=== PATIENT | female | born 1995 | race African-American/Black ===

== ENCOUNTER 2019-12-22 15:43 | Observation (INO) | payer OTHER ==
[2019-12-22 16:39] LABS: BASO # 0.1 x10^3/uL (0.0-0.2); BASO % 1 % (0-3); EOS # 0.1 x10^3/uL (0.0-0.7); EOS % 1 % (0-3); HEMATOCRIT 32.2 % (36.0-47.0); HEMOGLOBIN 11.5 g/dL (12.0-15.5); LYMPH % 23 % (24-48); MEAN CORPUSCULAR HEMOGLOBIN 33 pg (25-35); MEAN CORPUSCULAR HGB CONC 36 g/dL (31-37); MEAN CORPUSCULAR VOLUME 93 fL (79-100); MONO # 0.4 x10^3/uL (0.0-1.1); MONO % 5 % (0-9); NEUT # 6.3 x10^3/uL (1.8-7.7); NEUT % 71 % (31-73); PLATELET COUNT 215 x10^3/uL (140-400); RED BLOOD COUNT 3.48 x10^6/uL (3.50-5.40); WHITE BLOOD COUNT 8.9 x10^3/uL (4.0-11.0)
[2019-12-22 16:44] LABS: BILIRUBIN,URINE NEGATIVE (NEG); CLARITY,URINE CLEAR; COLOR,URINE YELLOW; NITRITE,URINE NEGATIVE (NEG); PROTEIN,URINE NEGATIVE (NEG-TRACE)
[2019-12-22 16:45] LABS: CALCIUM 7.9 mg/dL (8.5-10.1); CREATININE 0.5 mg/dL (0.6-1.0); GFR 183.4; POTASSIUM 3.2 mmol/L (3.5-5.1)
[2019-12-22 16:51] LABS: ALBUMIN/GLOBULIN RATIO 0.8 (1.0-1.7); TOTAL BILIRUBIN 0.4 mg/dL (0.2-1.0); TOTAL PROTEIN 6.8 g/dL (6.4-8.2)
[2019-12-22 17:08] LABS: BACTERIA,URINE FEW /HPF (0-FEW); RBC,URINE 0 /HPF (0-2); SQUAMOUS EPITHELIAL CELL,UR FEW /LPF; WBC,URINE 0 /HPF (0-4)
[2019-12-22 17:43] LABS: CREATININE,RANDOM URINE 249.5 mg/dL (Not Establ.)
== END 2019-12-22 17:35 | disposition home or self-care (01) ==
LOC: 3 SO LND 15:43
PROVIDERS: ADMIT Obstetrics & Gynecology; ATTEND Obstetrics & Gynecology
DX: O13.1 Gestational [pregnancy-induced] hypertension without significant proteinuria, first trimester (principal); Z3A.11 11 weeks gestation of pregnancy
CPT/HCPCS: 36415; 80053; 81001; 82570; 84156; 85025; G0378; G0379

== ENCOUNTER → 2020-01-23 | Outpatient (CLI) | payer OTHER | END | disposition home or self-care (01) | LOC: LAB 10:01 | PROVIDERS: ATTEND Obstetrics & Gynecology | DX: O09.90 Supervision of high risk pregnancy, unspecified, unspecified trimester (principal); Z3A.00 Weeks of gestation of pregnancy not specified | CPT/HCPCS: 36415; 82950 ==

== ENCOUNTER 2020-04-09 10:54 | Observation (INO) | payer OTHER ==
[2020-04-09] MEDS ORDERED: IV RINGERS,LACTATED 1000ML 1,000 ML IV SCH (11:06)
[2020-04-09 11:46] LABS: AMNIO PT NEGATIVE
[2020-04-09 11:58] LABS: BACTERIA,URINE 0 /HPF (0-FEW); BILIRUBIN,URINE NEGATIVE (NEG); CLARITY,URINE CLEAR; COLOR,URINE STRAW; NITRITE,URINE NEGATIVE (NEG); PROTEIN,URINE NEGATIVE (NEG-TRACE); RBC,URINE 0 /HPF (0-2); UROBILINOGEN,URINE 0.2 mg/dL (0.2 mg/dL); WBC,URINE 0 /HPF (0-4)
--- NOTE | 2020-04-09 13:14 | RAD ---
OB ultrasound greater than 14 weeks HISTORY: patient feels like she is leaking Sonographic examination appearance is performed by transabdominal technique and multiple static images were obtained. There is a single live intrauterine. Superior the heartbeat is confirmed at 124 beats for minute. Maternal cervix is not well seen due to the vertex position. There is a anterior placenta. Visualization of structures is limited by the advanced gestational age. The stomach appears normal. The amount fluid volume appears normal dynamic fluid index measures 10.2 cm. The LMP of 07/13/2019 corresponds with a 38 week 5 day gestational age and estimated date confinement of April 18, 2020. The estimated size by ultrasound is 37 weeks 5 days with estimated date of confinement of April 25, 2020. Estimated weight is 7 lbs. 7 oz. +/- 18 ounces. Estimated weight percentile is 51 percent. The measurements are as follows: BPD 9 cm 36 weeks 3 days Head circumference 33 cm 30 weeks 1 day Abdominal discomfort 34 cm 30 weeks 1 day Femur length 7.5 cm 30 weeks 2 days IMPRESSION: 1. Single live intrauterine size by ultrasound is within one standard deviation of size by LMP. 2. The maternal cervix could not be evaluated due to the cephalic position. 3. Visualization of structures is limited at this advanced gestational age however no abnormality is identified. A short-term follow-up ultrasound could be performed if clinically indicated. Electronically signed by: Madhu Cervantes III, MD (04/09/2020 1:11 PM) [facility]
[2020-04-09 15:11] VITALS: BP 112/64
== END 2020-04-09 15:31 | disposition home or self-care (01) ==
LOC: 3 SO LND 10:54
PROVIDERS: ADMIT Obstetrics & Gynecology; ATTEND Obstetrics & Gynecology
DX: O42.92 Full-term premature rupture of membranes, unspecified as to length of time between rupture and onset of labor (principal); O62.9 Abnormality of forces of labor, unspecified; O99.891 Other specified diseases and conditions complicating pregnancy; M54.9 Dorsalgia, unspecified; Z3A.38 38 weeks gestation of pregnancy
CPT/HCPCS: 36415; 76815; 81001; 84112; 86592; 86850; 86900; 86901; 87340; G0378; G0379; J2791; 96372

== ENCOUNTER 2020-04-11 08:22 | Inpatient (IN) | payer OTHER ==
[~2020-04-11] VITALS: Ht 160 cm; Wt 66.8 kg
[2020-04-11 08:41] VITALS: BP 127/75
[2020-04-11] MEDS ORDERED: TERBUTALINE 1 MG/ML VIAL. SQ PRN (09:00)
[2020-04-11] MEDS ORDERED: 0.9 % SODIUM CHLORIDE 10 ML DISP.SYRIN. IV PRN ×2 (09:00→11:30)
[2020-04-11] MEDS ORDERED: OXYTOCIN 30 UNIT/500 ML PREMIX 500 ML IV PRN ×3 (09:00→11:30)
[2020-04-11] MEDS ORDERED: PENICILLIN G K 5,000,000 UNIT in IV DEXTROSE 5% 100ML 100 ML IV ONE (09:00)
[2020-04-11] MEDS ORDERED: ONDANSETRON PF 4 MG/2 ML VIAL. IVP PRN (09:00)
[2020-04-11] MEDS ORDERED: LIDOCAINE 1% PF 30 ML VIAL. INJ PRN (09:00)
[2020-04-11 10:17] LABS: BASO % 0 % (0-3); EOS % 0 % (0-3); HEMATOCRIT 34.5 % (36.0-47.0); HEMOGLOBIN 12.5 g/dL (12.0-15.5); LYMPH # 2.3 x10^3/uL (1.0-4.8); LYMPH % 21 % (24-48); MEAN CORPUSCULAR HEMOGLOBIN 34 pg (25-35); MEAN CORPUSCULAR HGB CONC 36 g/dL (31-37); MEAN CORPUSCULAR VOLUME 93 fL (79-100); MONO # 0.8 x10^3/uL (0.0-1.1); MONO % 7 % (0-9); NEUT # 7.8 x10^3/uL (1.8-7.7); NEUT % 71 % (31-73); PLATELET COUNT 213 x10^3/uL (140-400); RED BLOOD COUNT 3.72 x10^6/uL (3.50-5.40); RED CELL DISTRIBUTION WIDTH 12.9 % (11.5-14.5)
[2020-04-11 10:19] LABS: BILIRUBIN,URINE NEGATIVE (NEG); CLARITY,URINE CLEAR; COLOR,URINE YELLOW; NITRITE,URINE NEGATIVE (NEG); PROTEIN,URINE NEGATIVE (NEG-TRACE); UROBILINOGEN,URINE 0.2 mg/dL (0.2 mg/dL)
[2020-04-11 10:24] LABS: BACTERIA,URINE 0 /HPF (0-FEW); RBC,URINE 0 /HPF (0-2); WBC,URINE OCC /HPF (0-4)
--- NOTE | 2020-04-11 11:23 | PDOC1 ---
OB - History Hx of Present Care: Good Care Ultrasounds: Normal mid trimester US Obstetrical Complications: None Medical Complications: None Past Family/Social History * Past Medical, Surgical, Family and Obstetric Histories reviewed from chart. Rubella: Immune RPR/VDRL: Negative GBS Status: Positive HBsAG: Negative OB - Chief Complaint & HPI Date of Admission: Date of Admission: Apr 11, 2020 at 08:22 Chief Complaint/History : 2 Para: 1 EGA: 38 Reason for admission: active labor Admission Nurse Assessment Rev: Yes OB - Admission Exam Physical Exam HEENT: Normal Heart: Regular Rate Lungs: Clear Abdomen: Gravid, Non tender, Soft Extremities: Edema Reflexes: Normal Cervical Dilatation: 10cm Effacement: 100% Station: 0 Membranes: Intact Heart Rate: Normal Accelerations: Accelerations Present Decelerations: No decelerations Contractions on Admission: < 5 Minutes Apart Intensity: Moderate Text A: 38 wks IUP Active labor GBS positive P: Admit labor management and Pen G for GBS positive status. GABRIELA JOHNSON Jr, MD Apr 11, 2020 11:23
--- NOTE | 2020-04-11 11:24 | PDOC ---
VAGINAL DELIVERY DATE DATE: 04/11/20 TIME: 11:23 : 2 Para: 2 EGA: 38 VAGINAL DELIVERY: VTX VACCUM ASSISTED: Yes NUMBER OF PULLS two NUMBER OF POP OFFS none MAXIMUM PRESSURE 600 mmhg PLACENTA: Spontaneous 8/9 SEX: Male WEIGHT Weight [ 3350 gm] Nuchal Cord: No Amniotic Fluid: Clear PAIN: Local (pudendal block) EPISIOTOMY: No EXTENSION: Yes (Left periurthral laceration) REPAIRED WITH 3-0 chromic EBL 300 ml COMPLICATIONS none CONDITION pt. stable Signs of Intrauterine Infectio: None Shoulder Dystocia: No GABRIELA JOHNSON Jr, MD Apr 11, 2020 11:24
[2020-04-11] MEDS ORDERED: diphenhydrAMINE HCL 25 MG CAPSULE PO PRN (11:30)
[2020-04-11] MEDS ORDERED: MMR per PROTOCOL. MC PRN (11:30)
[2020-04-11] MEDS ORDERED: PHENYLEPH/MINERAL OIL/PETROLAT RECTAL OINTMENT TUBE. RC PRN (11:30)
[2020-04-11] MEDS ORDERED: HYDROCORTISONE 1% TOPICAL OINTMENT 30GM TUBE. TP PRN (11:30)
[2020-04-11] MEDS ORDERED: ZOLPIDEM 5 MG TABLET. PO PRN (11:30)
[2020-04-11] MEDS ORDERED: ACETAMINOPHEN 325 MG TABLET. PO PRN (11:30)
[2020-04-11] MEDS ORDERED: MAG HYDROX/ALUMINUM HYD/SIMETH 30 ML ORAL.SUSP PO PRN (11:30)
[2020-04-11] MEDS ORDERED: SIMETHICONE 80 MG TAB.CHEW PO PRN (11:30)
[2020-04-11] MEDS ORDERED: MAGNESIUM HYDROXIDE 2,400 MG/30 ML ORAL.SUSP. PO PRN (11:30)
[2020-04-11] MEDS ORDERED: TDaP (Adacel) per PROTOCOL. MC PRN (11:30)
[2020-04-11] MEDS: IV RINGERS,LACTATED 1000ML 1,000 ML IV SCH ×2 (11:35→16:51)
[2020-04-11] MEDS: IBUPROFEN 400 MG TABLET. PO PRN (13:26)
[2020-04-11] MEDS: BENZOCAINE 20% TOPICAL AEROSOL SPRAY 57GM CAN. TP PRN (13:27)
[2020-04-11] MEDS: PENICILLIN G K 2,500,000 UNIT in IV DEXTROSE 5% 50 ML IV SCH ×2 (14:00→18:00)
[2020-04-11 14:15] VITALS: BP 120/63
[2020-04-11 16:30] VITALS: BP 114/59
[2020-04-11] MEDS: DOCUSATE SODIUM 100 MG CAPSULE. PO PRN (18:33)
[2020-04-11] MEDS: oxyCODONE/APAP 5/325 1 TAB TABLET PO PRN ×2 (18:33→23:16)
[2020-04-11 20:30] VITALS: BP 112/72
[2020-04-12 00:30] VITALS: BP 117/66
[2020-04-12] MEDS: oxyCODONE/APAP 5/325 1 TAB TABLET PO PRN (04:46)
[2020-04-12 04:58] VITALS: BP 110/63
[2020-04-12 08:13] LABS: BASO % 0 % (0-3); EOS # 0.1 x10^3/uL (0.0-0.7); EOS % 0 % (0-3); HEMATOCRIT 31.2 % (36.0-47.0); HEMOGLOBIN 10.6 g/dL (12.0-15.5); LYMPH # 2.5 x10^3/uL (1.0-4.8); LYMPH % 22 % (24-48); MEAN CORPUSCULAR HEMOGLOBIN 32 pg (25-35); MEAN CORPUSCULAR HGB CONC 34 g/dL (31-37); MEAN CORPUSCULAR VOLUME 94 fL (79-100); MONO # 0.8 x10^3/uL (0.0-1.1); MONO % 7 % (0-9); NEUT # 8.2 x10^3/uL (1.8-7.7); NEUT % 71 % (31-73); PLATELET COUNT 179 x10^3/uL (140-400); RED CELL DISTRIBUTION WIDTH 13.1 % (11.5-14.5); WHITE BLOOD COUNT 11.6 x10^3/uL (4.0-11.0)
[2020-04-12] MEDS: DOCUSATE SODIUM 100 MG CAPSULE. PO PRN ×2 (09:09→17:57)
[2020-04-12] MEDS: MULTIVITAMIN with MINERAL TABLET. PO SCH (09:09)
[2020-04-12] MEDS: IBUPROFEN 400 MG TABLET. PO PRN ×2 (09:10→17:58)
[2020-04-12] MEDS: FERROUS SULFATE 325 MG TABLET. PO SCH ×2 (09:10→17:00)
--- NOTE | 2020-04-12 09:40 | PDOC ---
OB Progress Note Date of Service 04/12/20 Time of Evaluation 0940 Notes Pt. feeling well. No complaints. Lab Laboratory Tests Test 04/11/20 08:51 04/11/20 08:55 04/11/20 13:30 04/12/20 07:46 Urine Collection Type Unknown Urine Color Yellow Urine Clarity Clear Urine pH 6.0 (<5.0-8.0) Urine Specific [place] 1.015 (1.000-1.030) Urine Protein Negative mg/dL (NEG-TRACE) Urine Glucose (UA) Negative mg/dL (NEG) Urine Ketones (Stick) Trace mg/dL (NEG) Urine Blood Negative (NEG) Urine Nitrite Negative (NEG) Urine Bilirubin Negative (NEG) Urine Urobilinogen Dipstick 0.2 mg/dL (0.2 mg/dL) Urine Leukocyte Esterase Trace (NEG) Urine RBC 0 /HPF (0-2) Urine WBC Occ /HPF (0-4) Urine Squamous Epithelial Cells Few /LPF Urine Bacteria 0 /HPF (0-FEW) Urine Mucus Slight /LPF White Blood Count 11.0 x10^3/uL (4.0-11.0) 11.6 x10^3/uL (4.0-11.0) Red Blood Count 3.72 x10^6/uL (3.50-5.40) 3.30 x10^6/uL (3.50-5.40) Hemoglobin 12.5 g/dL (12.0-15.5) 10.6 g/dL (12.0-15.5) Hematocrit 34.5 % (36.0-47.0) 31.2 % (36.0-47.0) Mean Corpuscular Volume 93 fL (79-100) 94 fL (79-100) Mean Corpuscular Hemoglobin 34 pg (25-35) 32 pg (25-35) Mean Corpuscular Hemoglobin Concent 36 g/dL (31-37) 34 g/dL (31-37) Red Cell Distribution Width 12.9 % (11.5-14.5) 13.1 % (11.5-14.5) Platelet Count 213 x10^3/uL (140-400) 179 x10^3/uL (140-400) Neutrophils (%) (Auto) 71 % (31-73) 71 % (31-73) Lymphocytes (%) (Auto) 21 % (24-48) 22 % (24-48) Monocytes (%) (Auto) 7 % (0-9) 7 % (0-9) Eosinophils (%) (Auto) 0 % (0-3) 0 % (0-3) Basophils (%) (Auto) 0 % (0-3) 0 % (0-3) Neutrophils # (Auto) 7.8 x10^3/uL (1.8-7.7) 8.2 x10^3/uL (1.8-7.7) Lymphocytes # (Auto) 2.3 x10^3/uL (1.0-4.8) 2.5 x10^3/uL (1.0-4.8) Monocytes # (Auto) 0.8 x10^3/uL (0.0-1.1) 0.8 x10^3/uL (0.0-1.1) Eosinophils # (Auto) 0.0 x10^3/uL (0.0-0.7) 0.1 x10^3/uL (0.0-0.7) Basophils # (Auto) 0.0 x10^3/uL (0.0-0.2) 0.0 x10^3/uL (0.0-0.2) Treponema pallidum Antibody Nonreactive (Nonreactive) SARS-CoV-2 Antigen (Rapid) Negative (NEGATIVE) Laboratory Tests Test 04/11/20 13:30 04/12/20 07:46 SARS-CoV-2 Antigen (Rapid) Negative (NEGATIVE) White Blood Count 11.6 x10^3/uL (4.0-11.0) Red Blood Count 3.30 x10^6/uL (3.50-5.40) Hemoglobin 10.6 g/dL (12.0-15.5) Hematocrit 31.2 % (36.0-47.0) Mean Corpuscular Volume 94 fL (79-100) Mean Corpuscular Hemoglobin 32 pg (25-35) Mean Corpuscular Hemoglobin Concent 34 g/dL (31-37) Red Cell Distribution Width 13.1 % (11.5-14.5) Platelet Count 179 x10^3/uL (140-400) Neutrophils (%) (Auto) 71 % (31-73) Lymphocytes (%) (Auto) 22 % (24-48) Monocytes (%) (Auto) 7 % (0-9) Eosinophils (%) (Auto) 0 % (0-3) Basophils (%) (Auto) 0 % (0-3) Neutrophils # (Auto) 8.2 x10^3/uL (1.8-7.7) Lymphocytes # (Auto) 2.5 x10^3/uL (1.0-4.8) Monocytes # (Auto) 0.8 x10^3/uL (0.0-1.1) Eosinophils # (Auto) 0.1 x10^3/uL (0.0-0.7) Basophils # (Auto) 0.0 x10^3/uL (0.0-0.2) Medications Current Medications Sodium Chloride (Normal Saline Flush) 3 ml QSHIFT PRN IV AFTER MEDS AND BLOOD DRAWS; Start 04/11/20 at 09:00 Ringer's Solution 1,000 ml @ 125 mls/hr Q8H IV Last administered on 04/11/20at 11:35; Start 04/11/20 at 08:51; Stop 04/11/20 at 19:46; Status DC Ondansetron HCl (Zofran) 4 mg PRN Q4HRS PRN IVP NAUSEA/VOMITING; Start 04/11/20 at 09:00 Terbutaline Sulfate (Brethine) 0.25 mg 1X PRN PRN SQ SEE COMMENTS; Start 04/11/20 at 09:00; Stop 04/12/20 at 08:59; Status DC Lidocaine HCl (Xylocaine 1% Pf 30ml Vial) 30 ml 1X PRN PRN INJ SEE COMMENTS Last administered on 04/11/20at 11:38; Start 04/11/20 at 09:00; Stop 04/13/20 at 08:59 Oxytocin/Sodium Chloride 500 ml @ 0 mls/hr CONT PRN IV SEE I/O RECORD Last administered on 04/11/20at 11:37; Start 04/11/20 at 09:00 Oxytocin/Sodium Chloride 500 ml @ 0 mls/hr CONT PRN PRN IV Post delivery bleeding; Start 04/11/20 at 09:00 Ibuprofen (Motrin) 800 mg PRN Q6HRS PRN PO PAIN Last administered on 04/12/20at 09:10; Start 04/11/20 at 09:00 Penicillin G Potassium [id number] unit/Dextrose 100 ml @ 100 mls/hr 1X ONCE IV Last administered on 04/11/20at 11:36; Start 04/11/20 at 09:00; Stop 04/11/20 at 09:59; Status DC Penicillin G Potassium [id number] unit/Dextrose 50 ml @ 100 mls/hr Q4H IV ; Start 04/11/20 at 14:00; Stop 04/11/20 at 19:46; Status DC Sodium Chloride (Normal Saline Flush) 10 ml QSHIFT PRN IV AFTER MEDS AND BLOOD DRAWS; Start 04/11/20 at 11:30 Oxytocin/Sodium Chloride 500 ml @ 62.5 mls/hr CONT PRN IV SEE I/O RECORD; Start 04/11/20 at 11:30; Stop 04/11/20 at 19:29; Status DC Acetaminophen (Tylenol) 650 mg PRN Q6HRS PRN PO MILD PAIN / TEMP > 100.3'F; Start 04/11/20 at 11:30 Ibuprofen (Motrin) 800 mg PRN Q8HRS PRN PO INFLAMMATION/PAIN PREVENTION; Start 04/11/20 at 11:30 Docusate Sodium (Colace) 100 mg PRN BID PRN PO HARD STOOL Last administered on 04/12/20at 09:09; Start 04/11/20 at 11:30 Magnesium Hydroxide (Milk Of Magnesia) 2,400 mg PRN DAILY PRN PO CONSTIPATION; Start 04/11/20 at 11:30 Al Hydroxide/Mg Hydroxide (Mylanta Plus Xs) 30 ml PRN Q4HRS PRN PO HEARTBURN / GAS; Start 04/11/20 at 11:30 Simethicone (Gas-X) 80 mg PRN AFTMEALHC PRN PO GAS / BLOATING; Start 04/11/20 at 11:30 Diphenhydramine HCl (Benadryl) 25 mg PRN Q6HRS PRN PO ITCHING; Start 04/11/20 at 11:30 Benzocaine (Americaine) 1 spray PRN QID PRN TP TOPICAL PAIN Last administered on 04/11/20at 13:27; Start 04/11/20 at 11:30 Phenyleph/Shark Oil/Min Oil/Petrol (Preparation H) 1 ese PRN QID PRN RC RECTAL PAIN; Start 04/11/20 at 11:30 Hydrocortisone (Cortaid) 1 ese PRN QID PRN TP PERINEAL PAIN; Start 04/11/20 at 11:30 Ferrous Sulfate (Feosol) 325 mg BIDWMEALS PO ; Start 04/12/20 at 08:00 Zolpidem Tartrate (Ambien) 5 mg PRN QHS PRN PO INSOMNIA, MAY REPEAT X1; Start 04/11/20 at 11:30 Info (Do NOT chart on this placeholder) 1 ea 1X PRN PRN MC SEE COMMENTS; Start 04/11/20 at 11:30 Info (Do NOT chart on this placeholder) 1 ea 1X PRN PRN MC SEE COMMENTS; Start 04/11/20 at 11:30 Oxycodone/ Acetaminophen (Percocet 5/325) 2 tab PRN Q4HRS PRN PO MODERATE PAIN, SEVERE PAIN Last administered on 04/12/20at 04:46; Start 04/11/20 at 11:30 Multivitamins (Thera M Plus) 1 tab DAILY PO Last administered on 04/12/20at 09:09; Start 04/12/20 at 09:00 Exam Abd: soft, non tender, fundus firm Assessment PPD#1 s/p Plan of Care: Continue current Tx, GABRIELA Smith Jr, MD Apr 12, 2020 09:40
[2020-04-12 15:57] VITALS: BP 115/73
[2020-04-12 21:05] VITALS: BP 110/73
[2020-04-13 01:18] VITALS: BP 112/66
[2020-04-13] MEDS: oxyCODONE/APAP 5/325 1 TAB TABLET PO PRN ×2 (04:18→12:53)
[2020-04-13] MEDS: IBUPROFEN 400 MG TABLET. PO PRN ×2 (04:19→12:52)
[2020-04-13 04:45] VITALS: BP 108/68
--- NOTE | 2020-04-13 08:35 | PDOC3 ---
OB DISCHARGE SUMMARY DATE OF ADMISSION: 04/11/20 DATE OF DISCHARGE: 04/13/20 REASON FOR ADMISSION: Onset of labor INTRAPARTUM PROCEDURES: Spontanous Vag Deliv DISCHARGE DIAGNOSIS: Term Delivered DISCHARGE INFORMATION: Activity (ad radha), Diet (regular), Instructions (pelvic rest x 6 wks) HOSPITAL COURSE Term gestation delivered vaginally without complications. GABRIELA JOHNSON Jr, MD Apr 13, 2020 08:35
[2020-04-13] MEDS ORDERED: IBUP-1027 PO (08:36)
--- NOTE | 2020-04-13 08:36 | DISCH ---
DISCHARGE INSTRUCTIONS Condition on Discharge Condition on Discharge: Stable Activity After Discharge Activity Instructions for Disc: Activity as tolerated Lifting Instructions after Dis: No heavy lifting Driving Instructions after Dis: Do not drive today Diet after Discharge Diet after Discharge: Regular Contacting the DRAngus after DC Call your doctor for: Concerns you may have Follow-Up Follow up with: Dr. Houston in 6 wks. GABRIELA HOUSTON Jr, MD Apr 13, 2020 08:36
[2020-04-13] MEDS: MULTIVITAMIN with MINERAL TABLET. PO SCH ×2 (10:18→10:22)
[2020-04-13] MEDS: FERROUS SULFATE 325 MG TABLET. PO SCH (10:19)
[2020-04-13 11:30] VITALS: BP 112/76
[2020-04-13] MEDS: BENZOCAINE 20% TOPICAL AEROSOL SPRAY 57GM CAN. TP PRN (13:12)
--- NOTE | 2020-04-13 14:15 | NUR ---
Discharge Note Mother denies questions or needs at this time. Mother, significant other, and baby in car seat escorted by Isatu Guallpa RN to vehicle with belongings present. NB in back seat of vehicle on car seat base, rear facing. Mother discharged home. Isatu Guallpa RN
== END 2020-04-13 14:15 | disposition home or self-care (01) | DRG 807 ==
LOC: OBSVTOIN 08:22 → 3 SO LND 08:22 → 3 NORTH 14:15
PROVIDERS: ADMIT Obstetrics & Gynecology; ATTEND Obstetrics & Gynecology
PROC: 10D07Z6 Extraction of Products of Conception, Vacuum, Via Natural or Artificial Opening (ICD-10-PCS; principal; 2020-04-11)
PROC: 0UQMXZZ Repair Vulva, External Approach (ICD-10-PCS; 2020-04-11)
PROC: 10907ZC Drainage of Amniotic Fluid, Therapeutic from Products of Conception, Via Natural or Artificial Opening (ICD-10-PCS; 2020-04-11)
DX: O99.824 Streptococcus B carrier state complicating childbirth (principal); Z37.0 Single live birth; Z3A.38 38 weeks gestation of pregnancy; O71.82 Other specified trauma to perineum and vulva; Z20.828 Contact with and (suspected) exposure to other viral communicable diseases
CPT/HCPCS: 36415; 81001; 85025; 86592; 86850; 86900; 86901; 87086; 87426; J2540; J2590; J3490; J7060; J7120; U0003; G0378